=== PATIENT | female | born 1985 | race American Indian/Alaskan Native ===

== ENCOUNTER 2019-03-02 03:24 | Emergency (ER) | payer OTHER ==
[2019-03-02 03:42] VITALS: BP 110/72
[2019-03-02] MEDS ORDERED: TRIMOX PO ONE (04:21)
[2019-03-02] MEDS ORDERED: TORADOL IM ONE (04:21)
--- NOTE | 2019-03-02 04:21 | Emergency Department Report ---
ED ENT HPI - General Chief complaint: Earache Stated complaint: R EAR/THROAT PAIN Time Seen by Provider: 03/02/19 04:16 Source: patient Mode of arrival: Ambulatory Limitations: No Limitations - History of Present Illness Initial comments: This is a 33-year-old -[place] female who presents to the emergency room with sore throat and right ear pain for 2 days. Patient states she arrived to [place] via plane on Tuesday and then felt sick ever since. Patient states initially she thought she just had a cold and started taken TheraFlu and Tylenol with minimal improvement of symptoms. She also reports having tonsils and adenoids removed in May and thought possibly she was having a flare with that. She denies fever, headache, nausea, vomiting, body aches, weakness, hoarseness, difficulty swallowing. MD complaint: sore throat, ear pain (right) Onset/Timin -: days(s) Location: R ear Severity: severe Severity scale (0 -10): 10 Quality: aching Consistency: constant Improves with: none Worsens with: swallowing, eating Context- Ear: recent travel Associated Symptoms: cough, sore throat. denies: fever, tinnitus, hearing loss, discharge from ear, rhinorrhea - Related Data Previous Rx's Medication Instructions Recorded Last Taken Type Amoxicillin [Trimox CAP] 500 mg PO BID #20 capsule 03/02/19 Unknown Rx Ibuprofen [Motrin 800 MG tab] 800 mg PO Q8HR PRN #20 tablet 03/02/19 Unknown Rx ED Dental HPI - General Chief complaint: Earache Stated complaint: R EAR/THROAT PAIN Time Seen by Provider: 03/02/19 04:16 Source: patient Mode of arrival: Ambulatory Limitations: No Limitations - Related Data Previous Rx's Medication Instructions Recorded Last Taken Type Amoxicillin [Trimox CAP] 500 mg PO BID #20 capsule 03/02/19 Unknown Rx Ibuprofen [Motrin 800 MG tab] 800 mg PO Q8HR PRN #20 tablet 03/02/19 Unknown Rx ED Review of Systems ROS: Stated complaint: R EAR/THROAT PAIN Other details as noted in HPI Constitutional: denies: chills, fever ENT: ear pain (right), throat pain Respiratory: cough. denies: shortness of breath, wheezing Cardiovascular: denies: chest pain, palpitations Gastrointestinal: denies: abdominal pain, nausea, diarrhea Musculoskeletal: denies: myalgia Skin: denies: rash, lesions Neurological: denies: headache, weakness, paresthesias Psychiatric: denies: anxiety, depression ED Past Medical Hx - Past Medical History Previous Medical History?: No - Surgical History Past Surgical History?: Yes Additional Surgical History: T&A - Social History Smoking Status: Never Smoker Substance Use Type: Alcohol - Medications Home Medications: Home Medications Medication Instructions Recorded Confirmed Last Taken Type Amoxicillin [Trimox CAP] 500 mg PO BID #20 capsule 03/02/19 Unknown Rx Ibuprofen [Motrin 800 MG tab] 800 mg PO Q8HR PRN #20 tablet 03/02/19 Unknown Rx ED Physical Exam - General Limitations: No Limitations General appearance: alert, in no apparent distress, obese - ENT ENT exam: Present: mucous membranes moist. Absent: normal orophraynx (erythematous posterior pharynx, uvula midline), TM's normal bilaterally (erythematous and bulging right TM, tragus tenderness, no drainage or signs of perforation) - Neck Neck exam: Present: full ROM, lymphadenopathy (anterior cervical, tenderness, mobile). Absent: tenderness, meningismus - Respiratory Respiratory exam: Present: normal lung sounds bilaterally. Absent: respiratory distress - Cardiovascular Cardiovascular Exam: Present: regular rate, normal rhythm. Absent: systolic murmur, diastolic murmur, rubs, gallop - GI/Abdominal GI/Abdominal exam: Present: soft, normal bowel sounds - Neurological Exam Neurological exam: Present: alert, oriented X3, normal gait - Psychiatric Psychiatric exam: Present: normal affect, normal mood - Skin Skin exam: Present: warm, dry, intact, normal color. Absent: rash ED Course Vital Signs 03/02/19 03:32 Temperature 98.4 F Pulse Rate 72 Respiratory 18 Rate Blood Pressure 110/72 O2 Sat by Pulse 95 Oximetry ED Medical Decision Making - Medical Decision Making Patient is stable and was examined by me. Vitals normal. Physical assessment susceptible of serous otitis media of right ear. Given Toradol and amoxicillin while in the ER. Start amoxicillin and ibuprofen. Discussed plan with patient and she agreed with plan. Discharged home in stable condition. Follow up with PCP in 24-72 hours. Critical care attestation.: If time is entered above; I have spent that time in minutes in the direct care of this critically ill patient, excluding procedure time. ED Disposition Clinical Impression: Otalgia of right ear Otitis media Qualifiers: Otitis media type: suppurative Chronicity: acute Laterality: right Recurrence: non-recurrent Spontaneous tympanic membrane rupture: without spontaneous rupture Qualified Code(s): H66.001 - Acute suppurative otitis media without spontaneous rupture of ear drum, right ear Disposition: - TO HOME OR SELFCARE Is pt being admited?: No Condition: Stable Instructions: Otitis Media (ED) Additional Instructions: Give Tylenol or ibuprofen for pain every 6-8 hours. Take antibiotics as prescribed to avoid recurrence of the ear infection. Avoid high altitudes, may worsen the pain during ear infection. If symptoms do not improve within 2 to 3 days, then follow up with primary care doctor. Prescriptions: Ibuprofen [Motrin 800 MG tab] 800 mg PO Q8HR PRN #20 tablet PRN Reason: Pain , Severe (7-10) Amoxicillin [Trimox CAP] 500 mg PO BID #20 capsule Referrals: [facility] [Provider Group] - 3-5 Days [facility] [Provider Group] - 3-5 Days LUIS AQUINO DO [Staff Physician] - 3-5 Days Forms: Work/School Release Form(ED) Time of Disposition: 04:27
== END 2019-03-02 04:55 | disposition home or self-care (01) ==
LOC: ED 03:24
DX: H66.91 Otitis media, unspecified, right ear (principal); Z79.899 Other long term (current) drug therapy
CPT/HCPCS: 96372; 99282; J1885